=== PATIENT | female | born 2000 | race African-American/Black ===

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

== ENCOUNTER 2019-09-03 01:14 | Emergency (ER) | payer SELFPAY ==
[~2019-09-03] VITALS: Ht 170 cm; Wt 55.2 kg
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
== END 2019-09-03 03:49 | disposition home or self-care (01) ==
LOC: EDUNIT# 01:14 → ER 01:17
DX: S00.33XA Contusion of nose, initial encounter (principal); Z87.440 Personal history of urinary (tract) infections; Y09 Assault by unspecified means
CPT/HCPCS: 70160